=== PATIENT | male | born 1955 | race American Indian/Alaskan Native ===

== ENCOUNTER → 2018-05-14 | Outpatient (CLI) | payer OTHER ==
[~2018-05-14] VITALS: Ht 170.2 cm; Wt 44.1 kg
[~2018-05-14] MED LIST: ADVAIR 250-501 EACH IH; AVELOX 400 MG400 MG PO; BIAXIN500 MG PO; MUCINEX600 MG PO; MYAMBUTOL 400400 M1 PO; NICOTINE TRANSD21 M1 TD; OXYCODONE HCL 55 MG PO; PREDNISONE 20 M20 M1 PO; PREDNISONE 20 M20 MG PO; PROTONIX40 M2 PO; PROVENTIL; RIFABUTIN150 MG PO; SPIRIVA INH; TIZANIDINE4 MG/1 TA1 PO; VITAMIN D 5050000 I1 PO
--- NOTE | ~2018-05-14 | HC ---
[facility] [place] [address] CONSULTATION Name: JOLIE SIGALA [id number] Admission: 05/14/18 Attend Phys: Christos Cotter Discharge: Date of : 51 Report #: [id number] THIS REPORT FOR: //name// CC: Christos Barfield MD DATE OF SERVICE: 05/14/2018 REASON FOR CONSULTATION: Microbacterium avium lung infection. HISTORY OF PRESENT ILLNESS: The patient is a 62-year-old white man known to me from a previous office visit at the [facility] at [facility] as well hospitalization at [facility]. The patient is known to have chronic lung disease and infection with Mycobacterium avium intracellulare. The patient was previously treated with combination antibiotics that consisted of I believe Biaxin, ethambutol and rifampin. The patient went on taking these combination of medications for several months to one and half to two years and he went on developing some visual disturbances and hearing problems, which he blamed to the medications, but neither the biometrics analyst nor the ear, nose and throat specialist were able to pinpoint the cause of his problem. Anyhow, the patient elected to discontinue all these medications. In view of that, he continues to have intermittent fevers and coughing and production of sputum. Dr. Fidencio Almonte requested the patient once again to be seen by me. Currently, the patient relates having had intermittent fevers up to 101, feeling cold all the time, being breathless, requiring supplemental oxygen at home, I believe 2 liters at night time. Despite his breathlessness and chronic lung condition, he has continued to smoke. DRUG ALLERGIES: PENICILLIN -- ANAPHYLAXIS. MEDICATIONS: The patient is currently on treatment with Advair Diskus 250/50 mcg inhalation twice daily, albuterol inhalation 4 times daily, guaifenesin 600 mg extended release every 12 hours, p.r.n. hydrocodone, chronic back pain (5/325 mg one q.i.d. p.r.n.), Ensure nutritional supplement, pantoprazole 40 mg daily for gastroesophageal reflux, polyethylene glycol daily, ProAir HFA 108 mcg inhaler 2 puffs by mouth every 4 hours if needed, Spiriva inhaler. PAST MEDICAL HISTORY: Chronic obstructive pulmonary disease. Hepatitis C infection. Microbacterium avium lung infection. Carpal tunnel surgery. Hernia repair. Multiple compression fractures requiring vertebroplasties. SOCIAL HISTORY: See H and P, old records. FAMILY HISTORY: See H and P, old records. [address] [address] CONSULTATION Name: JOLIE SIGALA [facility] [id number] Admission: 05/14/18 Attend Phys: Christos Cotter Discharge: Date of : 51 Report #: [id number] REVIEW OF SYSTEMS: As above. PHYSICAL EXAMINATION: GENERAL: This is a chronically ill-appearing, frail looking man. VITAL SIGNS: Following vital signs, temperature 97.8, pulse 75, BP 126/78, and O2 saturation 94% on room air. Height 5 feet 7 inches. Weight 97.2 pounds. HEENMT: Head normocephalic, atraumatic. Pupils reactive. Mouth edentulous. NECK: Supple. LUNGS: Few rhonchi, crackles, particularly in the right lung baig posteriorly. HEART: S1, S2. No gallop or murmur. ABDOMEN: Soft, no masses or megaly. GENITALIA AND RECTAL: Deferred. EXTREMITIES: No pretibial edema, clubbing, cyanosis. NEUROLOGIC: Grossly within normal limits. RADIOLOGY EVALUATION: Chest x-rays obtained at an outlying clinic were reviewed with Dr. Elian Swenson and the chest x-ray revealed chronic obstructive pulmonary disease, findings with hyperinflation and extensive right-sided pulmonary infiltrates that have waxed and wane through the month in the year 2018. Unfortunately, I could not access x-rays from the year 2014 at the [facility]. I ordered a set of blood tests and those are available at the time of this dictation and we have the following results: Sodium 132, potassium 4.1, chloride 100, CO2 of 28, BUN 13, creatinine 0.7, SGOT 50 units per liter, alkaline phosphatase significantly elevated at 348 U/L, albumin 2.8 g/dL, CRP 16.3 mg/L. The CBC revealed a leukopenia with a white blood cell count of 3300, hemoglobin 13 g/dL, platelets 152,000. White blood cell count differential revealed 52% segmented neutrophils, 31% lymphocytes. ESR is pending. The sputum was once again cultured at the clinic by Dr. Almonte and this again revealed growth of Mycobacterium avium, which remains sensitive to clarithromycin. The amikacin ELLIOT was 32 mcg/dL, which I suspect is a resistant organism, ciprofloxacin greater than 16 mcg/mL, also possibly resistant organism, ethambutol 8 mcg/mL, linezolid 32 mcg/mL, moxifloxacin 4 mcg/mL, rifampin 4 mcg/mL. ASSESSMENT: 1. Chronic obstructive pulmonary disease with ongoing Mycobacterium avium complex infection. 2. Hepatitis C infection with significant elevation of alkaline phosphatase. 3. Ongoing cigarette smoking. 4. Hypoalbuminemia. SUGGESTIONS: I have discussed the patient's situation with Dr. Fidencio Almonte and I suspect we can once again give another trial of multiple antibiotic combination consisting of either Biaxin or Zithromax in combination with [facility] [address] [place] [address] CONSULTATION Name: JOLIE SIGALA Room #: [facility] [id number] Admission: 05/14/18 Attend Phys: Christos Cotter Discharge: Date of : 51 Report #: [id number] ethambutol and either rifampin or rifabutin. We will try to make final recommendation with dosing taking in consideration of the patient's weight, which is only about 40 kilograms. Reduce dose of these antibiotics may be of the patient's malnutrition and possibly ongoing chronic liver disease. Dr. Almonte, thank you for requesting my suggestions in the care of your patient. <ELECTRONICALLY SIGNED> By: Christos Lou MD 05/15/18 [id number] Christos Lou MD /nt
[2018-05-14 11:41] VITALS: BP 126/78
[2018-05-14 12:42] LABS: ABSOLUTE NEUTROPHILS 1.7 thou/uL (1.4-8.2); EOSINOPHILS 4.2 % (0.0-3.0); HEMATOCRIT 39.1 % (42.0-52.0); LYMPHOCYTES 31.3 % (24.0-44.0); MCH 32.4 pg (26.0-34.0); MCHC 33.2 g/dL (28.0-37.0); MCV 97.6 fL (80.0-100.0); MONOCYTES 10.7 % (1.0-8.0); PLATELET COUNT 152 thou/uL (150-400); POLYS 52.8 % (36.0-66.0); RBC 4.01 mil/uL (4.50-6.00); RDW 16.3 % (10.5-14.5); WBC 3.3 thou/uL (4.0-11.0)
[2018-05-14 12:52] LABS: ALBUMIN 2.8 g/dL (3.4-5.0); CALCIUM 9.2 mg/dL (8.5-10.1); CREATININE 0.7 mg/dL (0.7-1.3); POTASSIUM 4.1 mmol/L (3.5-5.1); TOTAL BILIRUBIN 0.3 mg/dL (<0.1-1.0); TOTAL PROTEIN 8.9 g/dL (6.4-8.2)
== END ==
LOC: SEN 11:27
PROVIDERS: Internal Medicine Infectious Disease
DX: J44.9 Chronic obstructive pulmonary disease, unspecified (principal); A31.0 Pulmonary mycobacterial infection; E88.09 Other disorders of plasma-protein metabolism, not elsewhere classified; F17.211 Nicotine dependence, cigarettes, in remission; B19.20 Unspecified viral hepatitis C without hepatic coma